=== PATIENT | male | born 1980 | race Caucasian/White ===

== ENCOUNTER 2020-08-12 23:24 | Emergency (ER) | payer OTHER, SELFPAY ==
--- NOTE | ~2020-08-12 | CT_ITS ---
EXAMINATION: CT SOFT TISSUE NECK WITHOUT CONTRAST CLINICAL INFORMATION: Left dental abscess, pain under chin, trouble swallowing COMPARISON: None TECHNIQUE: Helical imaging was performed in the axial plane with generation of coronal and sagittal reformatted images. This CT examination was performed using dose optimization techniques as appropriate, variously including the following: *Automated exposure control *Adjustment of mA and/or kV according to patient size (this includes techniques or standardized protocols for targeted exams where dose is matched to indication/reason for exam; i.e. extremities or head) *Use of iterative reconstruction technique DLP: 775 mGy-cm FINDINGS: There is mild asymmetric stranding in the anterior subcutaneous tissues of the left neck, with no discrete collection seen. Scattered cervical lymph nodes identified without significant enlargement by size criteria. The parotid glands are homogeneous in attenuation. The submandibular glands are normal. No contour abnormality is seen within the oral cavity or pharyngeal mucosal space. The laryngeal structures are normal. The parapharyngeal fat is preserved. No retropharyngeal fluid collection is seen. The thyroid gland is normal. The superior mediastinum is unremarkable. The lung apices are clear. The mastoid air cells and visualized portions of the paranasal sinuses are well-aerated. No osseous abnormalities are seen. The imaged portions of the brain parenchyma are unremarkable. CT/CT soft tissue neck wo con IMPRESSION: Mild asymmetric subcutaneous stranding in the anterior left neck, with no appreciable collection.
[2020-08-12 23:28] VITALS: BP 146/95; PULSE 89; RESP 18; TEMP 36.1; O2SAT 97; BMI 37.3
--- NOTE | 2020-08-13 01:54 | ED.GENADULT ---
HPI - General Adult General Chief complaint: General Medical Stated complaint: dental Time Seen by Provider: 08/13/20 01:32 Source: patient Mode of arrival: ambulatory Limitations: no limitations History of Present Illness HPI narrative: Patient comes emergency room complaining of left-sided jaw pain. Patient states that he has been taking Augmentin for 4 days now. Patient was seen by his dentist, diagnosed with an infection. Patient does have a follow-up. Patient denies fever chills, however the pain and the swelling keep getting worse. Patient states that now he has pain in his chin, know he has pain with swallowing. Denies shortness of breath Related Data Previous Rx's Medication Instructions Recorded clindamycin HCl 300 mg PO BID 7 Days #14 cap 08/13/20 Allergies Allergy/AdvReac Type Severity Reaction Status Date / Time No Known Allergies Allergy Verified 08/13/20 01:38 Review of Systems Review of Systems: Constitutional : No Weight loss, No Fever, No Chills, No Night Sweats, No Fatigue, No Malaise ENT/Mouth : No Hearing loss, No Ear Pain, No Nasal Congestion, No Sinus Pain, No Hoarseness, No Rhinorrhea, No Swallowing Difficulty, complaining of mild sore throat, pain with swallowing, dental pain left mandibular side Eyes: No Eye Pain, No Swelling, No Redness, No Foreign Body, No Discharge, No Vision Changes Cardiovascular : No Chest Pain, No SOB, No Dyspnea on Exertion, No Orthopnea, No Edema, No Palpitations Respiratory : No Cough, No Sputum, No Wheezing, No Smoke Exposure, No Dyspnea Gastrointestinal : No Nausea, No Vomiting, No Diarrhea, No Constipation, No abdominal Pain, No Hematochezia, No Melena Genitourinary : no irregular bleeding, No Dysuria, No Urinary Frequency, No Hematuria, No Urinary Incontinence, No Urgency, No Flank Pain, No Urinary Flow Changes, No Hesitancy Musculoskeletal : No joint pain, No Myalgias, No Joint Swelling Skin : No Skin Lesions, No rash Neuro : No Weakness, No Numbness, No Paresthesias, No Loss of Consciousness, No Dizziness, No Headache Psych : No Anxiety/Panic, No Depression, No SI/HI/AH/VH, No Social Issues, Heme/Lymph: No Bruising, No Bleeding,No Lymphadenopathy Endocrine : No Polyuria, No Polydipsia, No Temperature Intolerance [facility] Social History Social History Advance Directives: No Advance Directives Information Provided: No Physical Exam Vital Signs: Vital Signs: Last Vital Signs Temp 97 F 08/12/20 23:28 Pulse 89 08/12/20 23:28 Resp 18 08/12/20 23:28 BP 146/95 H 08/12/20 23:28 Pulse Ox 97 08/12/20 23:28 Body Mass Index 37.3 Course Course Course Narrative: I discussed the labs and imaging with the patient, at this time Ludwigs angina is not suspected. Patient received empiric treatment with IV antibiotics, 300 mg of IV clindamycin and 10 mg of Decadron IV. Patient instructed to follow up with his primary physician and dentist . At this time sepsis is not suspected Medical Decision Making Lab Data Result diagrams: 08/13/20 02:46 08/13/20 02:45 Labs: Lab Results 08/13/20 08/13/20 08/13/20 Range/Units 02:45 02:46 02:46 WBC 10.0 (4.8-10.8) X10*3/uL RBC 5.15 (4.60-5.80) X10*6/uL Hgb 14.9 (14.0-18.0) g/dl Hct 45.0 (42-52) % MCV 87.4 (80-98) fL MCH 28.9 (27.0-33.0) pg MCHC 33.1 (31.0-36.0) g/dl RDW 13.1 (11.0-16.0) % Plt Count 296 (160-400) X10*3/uL MPV 9.4 (9.4-12.4) fL Immature Gran % (Auto) 0.4 (0.0-0.4) % Neut % (Auto) 60.2 (45-73) % Lymph % (Auto) 26.4 (20-40) % Mccreary % (Auto) 9.5 (2-11) % Eos % (Auto) 3.0 (0-4) % Baso % (Auto) 0.5 (0-2) % Lymph # (Auto) 2.6 (1.2-4.9) X10*3/uL Mccreary # (Auto) 1.0 (0.1-1.2) X10*3/uL Eos # (Auto) 0.3 (0.0-0.4) X10*3/uL Baso # (Auto) 0.1 (0.0-0.2) X10*3/uL Abs Immat Gran (auto) 0.04 H (0.00-0.03) X10*3/uL Absolute Neuts (auto) 6.0 (2.0-8.3) X10*3/uL Absolute Nucleated RBC 0.000 (0.0-0.012) X10*3/uL Nucleated RBC % (auto) 0.0 (0.0-0.2) /100WBC Sodium 141 (135-145) mmol/L Potassium 4.2 (3.3-5.1) mmol/L Chloride 106 (96-108) mmol/L Carbon Dioxide 24 (22-29) mmol/L Anion Gap 15 (12-20) BUN 15 (9-16) mg/dL Creatinine 1.08 (0.5-1.4) mg/dL Estim Creat Clear Calc 116.9 Estimated GFR > 60 Random Glucose 113 (60-115) mg/dL Lactic Acid 0.7 (0.5-2.0) mmol/L Calcium 9.2 (8.4-10.2) mg/dL Imaging Data Soft tissue CT scan of the neck: Radiologist's impression: FINDINGS: There is mild asymmetric stranding in the anterior subcutaneous tissues of the left neck, with no discrete collection seen. Scattered cervical lymph nodes identified without significant enlargement by size criteria. The parotid glands are homogeneous in attenuation. The submandibular glands are normal. No contour abnormality is seen within the oral cavity or pharyngeal mucosal space. The laryngeal structures are normal. The parapharyngeal fat is preserved. No retropharyngeal fluid collection is seen. The thyroid gland is normal. The superior mediastinum is unremarkable. The lung apices are clear. The mastoid air cells and visualized portions of the paranasal sinuses are well-aerated. No osseous abnormalities are seen. The imaged portions of the brain parenchyma are unremarkable. CT/CT soft tissue neck wo con IMPRESSION: Mild asymmetric subcutaneous stranding in the anterior left neck, with no appreciable collection. Discharge Plan Discharge Clinical Impression: Pain, dental Patient Disposition: Home, Self-Care Instructions: Dental Abscess (ED), Toothache (ED) Additional Instructions: Please follow-up with your dentist and her primary care physician. Continue taking Augmentin, at clindamycin. Prescriptions: New clindamycin HCl 300 mg capsule 300 mg PO BID 7 Days Qty: 14 RF: 0
[2020-08-13] MEDS: Clindamycin Phosphate/D5W 300 MG/50 ML PIGGYBACK 100 MG IV (02:47)
[2020-08-13] MEDS: 0.9 % Sodium Chloride 1,000 ML 999 ML IVCONT (02:47)
[2020-08-13 02:50] LABS: MANUAL DIFF FLAG NO
[2020-08-13 02:52] LABS: Basophils Absolute Auto 0.1 X10*3/uL (0.0-0.2); Basophils Percent Auto 0.5 % (0-2); Eosinophils Absolute Auto 0.3 X10*3/uL (0.0-0.4); Hemoglobin 14.9 g/dl (14.0-18.0); Imm Gran Abs Auto 0.04 X10*3/uL (0.00-0.03); Imm Gran Pct Auto 0.4 % (0.0-0.4); Lymphocytes Absolute Auto 2.6 X10*3/uL (1.2-4.9); Lymphocytes Percent Auto 26.4 % (20-40); Mean Corpuscular HGB Conc 33.1 g/dl (31.0-36.0); Mean Corpuscular Hemoglobin 28.9 pg (27.0-33.0); Mean Corpuscular Volume 87.4 fL (80-98); Mean Platelet Volume 9.4 fL (9.4-12.4); Monocytes Percent Auto 9.5 % (2-11); Neutrophils Percent Auto 60.2 % (45-73); Platelet Count 296 X10*3/uL (160-400); Red Blood Count 5.15 X10*6/uL (4.60-5.80); Red Cell Distribution Width 13.1 % (11.0-16.0)
[2020-08-13 03:07] LABS: Lactic Acid 0.7 mmol/L (0.5-2.0)
[2020-08-13 03:16] LABS: Anion Gap 15 (12-20); Blood Urea Nitrogen 15 mg/dL (9-16); Calcium 9.2 mg/dL (8.4-10.2); Carbon Dioxide 24 mmol/L (22-29); Chloride 106 mmol/L (96-108); Creatinine Clr Calc Pharmacy 116.9; Estimated Glomerular Filt Rate > 60; Glucose Random 113 mg/dL (60-115); Potassium 4.2 mmol/L (3.3-5.1); Sodium 141 mmol/L (135-145)
== END 2020-08-13 04:23 | disposition home or self-care (01) ==
PROVIDERS: Emergency Provider Emergency Medicine; PCP Internal Medicine
DX: K08.89 Other specified disorders of teeth and supporting structures (principal)
CPT/HCPCS: 36415; 70490; 80048; 83605; 85025; 96361; 96365; 96375; 99283; 99284; J1100

== ENCOUNTER 2023-02-26 00:03 | Emergency (ER) | payer OTHER, SELFPAY ==
--- NOTE | ~2023-02-26 | XR_ITS ---
EXAMINATION: XR SHOULDER, RIGHT CLINICAL INFORMATION: Right shoulder pain COMPARISON: None available. TECHNIQUE: Three views of the right shoulder. FINDINGS: Glenohumeral alignment is anatomic. No acute fracture is seen. Acromioclavicular joint appears intact. XR/XR shoulder RT min 2V IMPRESSION: No acute findings.
[2023-02-26 00:07] VITALS: BP 134/90; PULSE 88; RESP 18; TEMP 36.3; O2SAT 95; BMI 36.6
[2023-02-26 01:19] VITALS: BP 121/81; PULSE 76; RESP 16; TEMP 36.7; O2SAT 96
--- NOTE | 2023-02-26 01:27 | ED.EXTPRO ---
HPI - Extremity Problem General Chief complaint: Extremity Injury, Upper Stated complaint: Right Shoulder Pain Time Seen by Provider: 02/26/23 01:14 Source: patient Mode of arrival: ambulatory Limitations: no limitations History of Present Illness HPI Narrative: Pt is a 42yo male who presents to the ED with right shoulder pain. Pt states he was taking the [employer] tree off of his car on Monday a week ago, when he over extended his shoulder. He states he didn't have pain until Monday which has gotten worse. Pain is intermittent and primarily with overhead movements. He notes the pain as sharp. He states he has continued to use his shoulder and perform overhead movements since the initial injury due to work demands. Denies any numbness, tingling, or skin changes to the right arm/shoulder. Related Data Previous Rx's Medication Instructions Recorded clindamycin HCl 300 mg capsule 300 mg PO BID 7 days #14 caps 08/13/20 amitriptyline 25 mg tablet 50 mg (2 x 25 mg) PO BEDTIME #60 10/08/21 tabs citalopram 10 mg tablet 10 mg PO DAILY 30 days #30 tabs 11/15/21 citalopram 20 mg tablet 20 mg PO DAILY 30 days #30 tabs 11/15/21 Allergies Allergy/AdvReac Type Severity Reaction Status Date / Time No Known Allergies Allergy Verified 02/26/23 00:07 Review of Systems Constitutional: Constitutional: Denies chills and Denies headache(s) ENT: Denies dizziness and Denies headache(s) Cardiovascular: Cardiovascular: Denies chest pain and Denies dyspnea Respiratory: Respiratory: Denies dyspnea Gastrointestinal: Gastrointestinal: Denies nausea and Denies vomiting Musculoskeletal: Musculoskeletal: Reports arthralgias (right shoulder), Reports limited range of motion (right shoulder unable to fully lift above head), Denies numbness and Denies tingling Neurologic: Denies dizziness, Denies headache(s), Denies numbness and Denies tingling Physical Exam Vital Signs: Vital Signs: Last Vital Signs Temp 98.0 F 02/26/23 01:19 Pulse 76 02/26/23 01:19 Resp 16 02/26/23 01:19 BP 121/81 02/26/23 01:19 Pulse Ox 96 02/26/23 01:19 O2 Del Method Room Air 02/26/23 01:19 BMI result Body Mass Index 36.6 Const: General: cooperative, healthy appearing, comfortable, no acute distress, alert and awake Orientation/consciousness: patient oriented x3 Limitations: no limitations HEENT: Head: Yes normal to inspection Ears: hearing grossly normal bilaterally General nose exam: Normal external nose present Eyes: General: appearance normal, both eyes and all related structures Neuro: General: patient oriented x3 and moves all extremities Extrem: Right upper extremity: normal to inspection and no joint enlargement; ROM limited (PROM intact, AROM limited above shoulder level), no cyanosis and no edema Medical Decision Making Medical Decision Making MDM Narrative: Patient appears to be mild injury to the right shoulder. He still has good range of motion but cannot lift the extremity to high above the shoulder. History exam was consistent with a right shoulder sprain. X-rays are negative for fracture. Patient was educated on results. He was instructed or symptomatic care with rest, ice, compression, elevation as well as NSAIDs. He will follow-up with his PCP Differential Diagnosis Differential Diagnoses: The differential diagnosis associated with the presentation includes (shoulder sprain, adhesive capsulitis, rotator cuff tear, soft tissue injury, shoulder dislocation) Independent Interpretation I performed an independent interpretation of an: Plain X-Ray (No acute shoulder fracture) Radiology Impression Discussion of test interpretation with radiology: I have reviewed the radiologist's reading. (No acute findings) Discharge Plan Discharge Clinical Impression: Shoulder sprain Patient Disposition: Home, Self-Care Instructions: Shoulder Sprain (ED) Additional Instructions: Your x-ray was negative for fracture. You have a sprain right shoulder Use ibuprofen/Tylenol as needed for pain Follow-up with your primary doctor Prescriptions: No Action amitriptyline 25 mg tablet 50 mg PO BEDTIME Qty: 60 0RF citalopram 10 mg tablet 10 mg PO DAILY 30 Days Qty: 30 3RF citalopram 20 mg tablet 20 mg PO DAILY 30 Days Qty: 30 3RF clindamycin HCl 300 mg capsule 300 mg PO BID 7 Days Qty: 14 0RF
== END 2023-02-26 02:56 | disposition home or self-care (01) ==
PROVIDERS: Emergency Provider Internal Medicine
DX: S43.401A Unspecified sprain of right shoulder joint, initial encounter (principal); X58.XXXA Exposure to other specified factors, initial encounter; Y93.89 Activity, other specified; Y92.9 Unspecified place or not applicable; Y99.9 Unspecified external cause status; M25.511 Pain in right shoulder
CPT/HCPCS: 73030; 99283; 99284